=== PATIENT | female | born 1980 | race Caucasian/White ===

== ENCOUNTER → 2017-11-29 | Outpatient (CLI) | payer BC ==
[2017-11-29 16:49] LABS: T4, Free (Free Thyroxine) 0.84 ng/dL (0.78-2.19)
--- NOTE | 2017-12-01 12:32 | US ---
EXAMINATION TYPE: US thyroid st tissue head/neck DATE OF EXAM: 11/29/2017 COMPARISON: NONE CLINICAL HISTORY: E04.1 Thyroid Nodule. Neck swelling GLAND SIZE: Right Lobe: 4.3 x 1.3 x 1.5 cm Overall Parenchyma: homogenous Left Lobe: 3.6 x 0.9 x 1.5 cm Overall Parenchyma: homogeneous Isthmus Thickness: 0.3 cm NODULES RIGHT: # of nodules measured on right: 0 LEFT: # of nodules measured on left: 0 ISTHMUS: # of nodules measured in the isthmus: 0 Bilateral neck scanned, multiple bilateral hypoechoic vascular structures with largest on right = 2.5 x 0.7 x 1.6cm and largest on left = 1.8 x 0.7 x 1.7cm, probable lymph nodes. IMPRESSION: 1. Multiple bilateral nonenlarged lymph nodes surrounding the thyroid gland, likely reactive. 2. No nodularity or heterogeneity within the thyroid gland.
== END | disposition home or self-care (01) ==
LOC: RADUSWWP 15:36
PROVIDERS: ATTEND Otolaryngology
DX: E04.1 Nontoxic single thyroid nodule (principal); E06.9 Thyroiditis, unspecified
CPT/HCPCS: 36415; 76536; 84439; 84443; 84481; 86376

== ENCOUNTER → 2018-05-09 | Outpatient (CLI) | payer BC ==
--- NOTE | 2018-05-09 14:44 | XR ---
EXAMINATION TYPE: XR chest 2V DATE OF EXAM: 05/09/2018 COMPARISON: None INDICATION: History of autoimmune disorders, recurrent episcleritis TECHNIQUE: Frontal and lateral views of the chest are obtained. FINDINGS: The heart size is normal. The pulmonary vasculature is normal. The lungs are clear. No pleural fluid is evident. IMPRESSION: 1. No acute pulmonary process.
--- NOTE | 2018-05-09 14:45 | XR ---
EXAMINATION TYPE: XR sacroiliac joint comp BILAT DATE OF EXAM: 05/09/2018 COMPARISON: None HISTORY: Autoimmune disorder TECHNIQUE: Sacroiliac joints are examined in 3 views FINDINGS: Vacuum joint space phenomenon is present at sacroiliac joints. Some slight increased sclero sis is through the bilateral sacroiliac joints. No acute fractures are evident. IMPRESSION: 1. Degenerative changes of the sacroiliac joints.
[2018-05-09 16:22] LABS: Rheumatoid Factor 6 IU/mL (0-15)
[2018-05-10 06:16] LABS: Angiotensin-1 Converting Enz. 51 U/L (8-52)
[2018-05-10 09:48] LABS: HLA B27 NEGATIVE
== END | disposition home or self-care (01) ==
LOC: LABWHC1 10:37
PROVIDERS: ATTEND Ophthalmology
DX: H15.109 Unspecified episcleritis, unspecified eye (principal); M53.3 Sacrococcygeal disorders, not elsewhere classified; H20.9 Unspecified iridocyclitis
CPT/HCPCS: 36415; 71046; 72202; 82164; 86038; 86431; 86618; 86780; 86812

== ENCOUNTER → 2023-02-06 | Outpatient (CLI) | payer BC ==
--- NOTE | 2023-02-07 07:36 | MM ---
Reason for Exam: Screening (asymptomatic). Last mammogram was performed 8 year(s) and 7 month(s) ago. Patient History: Menarche at age 14. First Full-Term at age 29. Patient has history of breast feeding. Last menstrual period: 01/22/2023 Risk Values: Jasmine 5 year model risk: 0.6%. NCI Lifetime model risk: 11.1%. Prior Study Comparison: 07/26/2014 Bilateral Diagnostic Mammogram, [facility]. 01/25/2015 Right Diagnostic Mammogram, [facility]. Tissue Density: There are scattered fibroglandular densities. Findings: Analyzed By CAD. There is new circumscribed 6 mm round mass in the anterior to middle depth upper inner aspect left breast that warrants further workup. Overall Assessment: Incomplete: need additional imaging evaluation, BI-RAD 0 Management: Diagnostic Breast Ultrasound of the left breast. Targeted ultrasound left breast 9-12 o'clock zone AB. Patient should continue monthly self-breast exams. A clinical breast exam by your physician is recommended on an annual basis. This exam should not preclude additional follow-up of suspicious palpable abnormalities. Note on Jasmine scores and lifetime risk: 1. A Jasmine score greater than 3% is considered moderate risk. If this is the case, consider specialist referral to assess eligibility for a risk reducing agent. 2. If overall lifetime risk for the development of breast cancer is 20% or higher, the patient may qualify for future screening with alternating mammogram and breast MRI. Electronically signed and approved by: Jose Daigle M.D.
== END | disposition home or self-care (01) ==
LOC: RADMAMWWP 14:40
PROVIDERS: ATTEND Obstetrics & Gynecology
DX: Z12.31 Encounter for screening mammogram for malignant neoplasm of breast (principal)
CPT/HCPCS: 77063; 77067

== ENCOUNTER → 2023-02-15 | Outpatient (CLI) | payer BC ==
--- NOTE | 2023-02-15 08:08 | USB ---
Reason for Exam: Additional evaluation requested from abnormal screening. Patient History: Menarche at age 14. First Full-Term at age 29. Patient has history of breast feeding. Risk Values: Jasmine 5 year model risk: 0.6%. NCI Lifetime model risk: 11.1%. Technique: Method: Targeted. Prior Study Comparison: 07/26/2014 Bilateral Diagnostic Mammogram, [facility]. 01/25/2015 Right Diagnostic Mammogram, [facility]. 02/06/2023 Bilateral MG 3D screening mammo w/cad, [facility]. Findings: The upper inner quadrant of the left breast, the axilla of the left breast and the retroareolar of the left breast were scanned. Targeted ultrasound left breast from 9-12 o'clock with additional evaluation the nipple and axilla was performed. There is a hypoechoic mass within the left breast at 10:00 centimeters there is a nipple measuring 0.5 x 0.4 x 0.5 cm well-circumscribed border. This is somewhat oval in appearance without internal color flow. There is posterior acoustic shadowing identified. This appears parallel in orientation. No suspicious left axillary adenopathy identified. Overall Assessment: Suspicious, BI-RAD 4 Management: Ultrasound Core Biopsy of the left breast. A clinical breast exam by your physician is recommended on an annual basis and results should be correlated with mammographic findings. This exam should not preclude additional follow-up of suspicious palpable abnormalities. Results were given to the patient verbally at the time of exam. Electronically signed and approved by: Juanjo Pat D.O.
== END | disposition home or self-care (01) ==
LOC: RADUSWWP 07:38
PROVIDERS: ATTEND Obstetrics & Gynecology
DX: R92.8 Other abnormal and inconclusive findings on diagnostic imaging of breast (principal)

== ENCOUNTER → 2023-02-27 | Day surgery (SDC) | payer BC ==
--- NOTE | 2023-02-27 10:59 | MM ---
Reason for Exam: Post Procedure Mammogram. Last screening mammogram was performed less than 1 month ago. Patient History: Menarche at age 14. First Full-Term at age 29. Patient has history of breast feeding. Risk Values: Jasmine 5 year model risk: 0.6%. NCI Lifetime model risk: 11.1%. Tissue Density: Left: There are scattered fibroglandular densities. Overall Assessment: Post procedure mammogram for marker placement Management: Post Mammogram for Hussein Placement of the left breast. Electronically signed and approved by: Gonzalo Hill DO
--- NOTE | 2023-03-11 09:46 | USB ---
Risk Values: Jasmine 5 year model risk: 0.6%. NCI Lifetime model risk: 11.1%. Prior Study Comparison: 07/26/2014 Bilateral Diagnostic Mammogram, [facility]. 01/25/2015 Right Diagnostic Mammogram, [facility]. 02/06/2023 Bilateral MG 3D screening mammo w/cad, [facility]. Pathology Description: Location: 10 o'clock. Marker Left Behind. Needle Type: Mammotome Cores: 5 Skin Nicks: 1 The procedure of ultrasound guided core biopsy was explained to the patient. Benefits, alternatives, and risks were discussed. An informed consent was then obtained. The patient was placed in supine positioning for imaging and for the procedure. The overlying skin was prepped and draped in usual sterile fashion. Lidocaine buffered with bicarbonate was used as anesthetic into the skin and subcutaneous tissue up to area of concern in the left breast 10:00 7 cm from nipple. A karoline was made with surgical scalpel. Under ultrasound guidance, a 12-gauge vacuum assisted biopsy gun device was used to obtain 5 core samples. Following this, a biopsy clip was left in lesion. The patient tolerated the procedure well without any immediate complication. The patient was kept in the radiology department for short stay after the procedure and then discharged home in stable condition. Postprocedure mammogram: The patient was transferred to mammography for physician ordered post procedure mammogram for clip placement verification. Impression: Successful, uncomplicated ultrasound guided core biopsy of area of concern in the left breast, full pathology results to follow. Pathology Results: Result: Benign, Fibroadenoma. LEFT BREAST, TEN O'CLOCK, ULTRASOUND GUIDED NEEDLE CORE BIOPSY: Fibroadenoma. Overall Assessment: Benign Management: Diagnostic Mammogram of the left breast in 6 months. Electronically signed and approved by: Gonzalo Hill DO
== END ==
LOC: RADUSWWP 07:43
PROVIDERS: ATTEND Surgery
DX: D24.2 Benign neoplasm of left breast (principal)
CPT/HCPCS: 88305; 77065; 19083; A4648

== ENCOUNTER → 2023-03-07 | Outpatient (CLI) | payer BC ==
[2023-03-07 10:51] VITALS: BP 131/84; PULSE 94; RESP 18; TEMP 98.4
--- NOTE | 2023-03-07 11:05 | P.GSHP ---
History of Present Illness H&P Date: 03/07/23 Chief Complaint: fibroadenoma left breast Susi is a 42 year old white female seen in consultation for Dr. Verdugo regarding a left breast fibroadenoma. plan a baseline bilateral mammogram on 5322. This revealed a circumscribed 6 mm bowel mass the anterior middle depth inner aspect left breast for which further workup was recommended. She underwent on an ultrasound of the left breast which revealed at that site a 0.5 x 0.5 cm circumscribed lesion. Ultrasound-guided core biopsy was recommended. She underwent an ultrasound-guided core biopsy and which revealed a fibroadenoma. The patient does not feel anything of concern in either breast. She has not had any surgery on either breast. She is not complaining of any nipple discharge or skin changes. She tolerated the ultrasound core biopsy without difficulty. Caffiene: coke daily 3-4 nicotine: none chocolate: occasional BCP: in her late teens hormones: none Family History: 2 sister pre-cancer cervical cells Hormonal History: menarche: 14 , breast fed: yes, age at first : 29 periods regular: LMP February 18 surgical history: Negative Medical history: HTN SociaL History: nicotine: none alcohol: occasional drugs: none - Constitutional Constitutional: Denies chills, Denies fever - EENT Eyes: denies blurred vision, denies pain Ears: deny: decreased hearing, tinnitus Ears, nose, mouth and throat: Denies headache, Denies sore throat - Breasts Breasts: bilateral: as per HPI - Cardiovascular Cardiovascular: Denies chest pain, Denies shortness of breath - Respiratory Respiratory: Denies cough, Denies 7 - Gastrointestinal Gastrointestinal: Denies abdominal pain, Denies diarrhea, Denies nausea, Denies vomiting - Genitourinary (Female) Genitourinary: Denies dysuria, Denies hematuria - Menstruation Menstruation: Reports as per HPI - Musculoskeletal Musculoskeletal: Denies myalgias - Integumentary Comment: psoriasis Integumentary: Denies pruritus, Denies rash - Neurological Neurological: Denies numbness, Denies weakness - Psychiatric Psychiatric: Denies anxiety, Denies depression - Endocrine Endocrine: Denies fatigue, Denies weight change - Hematologic/Lymphatic Comment: none - Allergic/Immunologic Allergic/Immunologic: Reports as per HPI Past Medical History History of Any Multi-Drug Resistant Organisms: None Reported Smoking Status: Never smoker Medications and Allergies Home Medications Medication Instructions Recorded Confirmed Type Losartan/Hydrochlorothiazide 1 tablet PO DAILY 02/21/23 03/07/23 History [Losartan-Hctz 100-12.5 mg Tab] Allergies Allergy/AdvReac Type Severity Reaction Status Date / Time No Known Allergies Allergy Verified 03/07/23 10:48 Surgical - Exam Vital Signs Temp Pulse Resp BP Pulse Ox 98.4 F 94 18 131/84 100 03/07/23 10:48 03/07/23 10:48 03/07/23 10:48 03/07/23 10:48 03/07/23 10:48 - General no distress - Eyes normal ocular movement - ENT no hearing loss - Neck trachea midline - Respiratory normal respiratory effort - Cardiovascular Rhythm: regular Heart Sounds: normal: S1, S2 - Abdomen Abdomen: soft, non tender, no guarding, no rigid, no rebound - Integumentary normal turgor - Neurologic no disoriented, no combative - Musculoskeletal normal gait, normal posture - Psychiatric oriented to time, oriented to person, oriented to place, speech is normal, memory intact Breat Exam: BRA: 38DD Inspection: bilateral grade 2 ptosis Palpation: Right breast: Multiple positional exam fibrocystic changes no dominant masses or nodules of concern Left breast biopsy site mild ecchymosis no dominant masses or nodules of concern were multiple positional exam Left axilla: No adenopathy of concern Ultrasound personally reviewed Results ultrasound personally reviewed Assessment and Plan Assessment: impression: Ultrasound proven fibroadenoma left breast Plan: Repeat left breast ultrasound in 6 months to assure that this is stable Follow up sooner any questions or concerns CC: Dr. Verdugo
== END ==
LOC: WWCWWP 10:15
PROVIDERS: ATTEND Surgery
DX: D24.2 Benign neoplasm of left breast (principal); I10 Essential (primary) hypertension; Z80.0 Family history of malignant neoplasm of digestive organs

== ENCOUNTER → 2023-09-02 | Outpatient (CLI) | payer BC ==
[2023-09-02 16:09] LABS: Basophils # (A) 0.06 X 10*3/uL (0.00-0.10); Basophils % (A) 0.8 %; Eosinophils # (A) 0.19 X 10*3/uL (0.04-0.35); Eosinophils % (A) 2.5 %; HCT 42.4 % (37.2-46.3); Lymphocytes # (A) 2.54 X 10*3/uL (0.90-5.00); Lymphocytes % (A) 32.8 %; MCH 29.2 pg (27.0-32.0); MCV 88.5 FL (80.0-97.0); Mean Platelet Volume 11.3 FL (9.5-12.2); Monocytes # (A) 0.61 X 10*3/uL (0.20-1.00); Monocytes % (A) 7.9 %; NRBC Per 100 WBC 0 X 10*3/uL (0.00-0.01); Neutrophils % (A) 55.5 %; Platelet Count 323 X 10*3/uL (140-440); RBC 4.79 X 10*6/uL (4.10-5.20); RDW 12.4 % (11.5-14.5); WBC 7.74 X 10*3/uL (4.50-10.00)
[2023-09-02 16:26] LABS: Erythrocyte Sedimentation Rate 3 mm/Hr (0-20)
[2023-09-02 17:48] LABS: ALT 27 U/L (8-44); AST 20 U/L (13-35); Albumin 4.6 g/dL (3.8-4.9); Albumin/Globulin Ratio 1.84 Ratio (1.60-3.17); Alkaline Phosphatase 74 U/L (41-126); BUN/Creat Ratio 8.75 Ratio (12.00-20.00); Calcium 9.5 mg/dL (8.7-10.3); Carbon Dioxide 23.8 mmol/L (21.6-31.8); Chloride 105 mmol/L (96-109); Chol/HDL Ratio 3.64 Ratio; Globulin 2.5 g/dL (1.6-3.3); Glucose 94 mg/dL (70-110); LDL Cholesterol,Calculated 112.8 mg/dL (0.0-131.0); Potassium 3.8 mmol/L (3.5-5.5); Rheumatoid Factor, Qnt <15 IU/mL (0-15); Sodium 141 mmol/L (135-145); T4, Free (Free Thyroxine) 1.07 ng/dL (0.80-1.80); Total Bilirubin 0.4 mg/dL (0.3-1.2); Total Protein 7.1 g/dL (6.2-8.2)
== END | disposition home or self-care (01) ==
LOC: LABWHC1 07:37
PROVIDERS: ATTEND Internal Medicine Critical Care Medicine
DX: Z00.00 Encounter for general adult medical examination without abnormal findings (principal); I10 Essential (primary) hypertension; L40.9 Psoriasis, unspecified; L40.50 Arthropathic psoriasis, unspecified
CPT/HCPCS: 36415; 80053; 80061; 82306; 83036; 84439; 84443; 85025; 85652; 86038; 86431

== ENCOUNTER → 2023-09-02 | Outpatient (CLI) | payer BC ==
--- NOTE | 2023-09-02 09:10 | MM ---
Reason for Exam: Follow-up at short interval from prior study. Last screening mammogram was performed 6 month(s) ago. Patient History: Menarche at age 14. First Full-Term at age 29. Patient has history of breast feeding. 02/27/2023, Benign US biopsy breast VAD LT on the left side. Last menstrual period: 08/20/2023 Risk Values: Jasmine 5 year model risk: 1.1%. NCI Lifetime model risk: 13.4%. Prior Study Comparison: 01/25/2015 Right Diagnostic Mammogram, [facility]. 02/06/2023 Bilateral MG 3D screening mammo w/cad, [facility]. 02/27/2023 Left MG diagnostic mammo LT wo CAD., [facility]. Tissue Density: Left: There are scattered fibroglandular densities. Findings: Analyzed By CAD. Left breast biopsy clip. No new suspicious masses, calcifications or distortions. Overall Assessment: Benign, BI-RAD 2 Management: Screening Mammogram of both breasts in 1 year. Results were given to the patient verbally at the time of exam. Patient should continue monthly self-breast exams. A clinical breast exam by your physician is recommended on an annual basis. This exam should not preclude additional follow-up of suspicious palpable abnormalities. Note on Jasmine scores and lifetime risk: 1. A Ajsmine score greater than 3% is considered moderate risk. If this is the case, consider specialist referral to assess eligibility for a risk reducing agent. 2. If overall lifetime risk for the development of breast cancer is 20% or higher, the patient may qualify for future screening with alternating mammogram and breast MRI. Electronically signed and approved by: Gonzalo Hill DO
== END | disposition home or self-care (01) ==
LOC: LABWHC1 08:46
PROVIDERS: ATTEND Surgery
DX: R92.8 Other abnormal and inconclusive findings on diagnostic imaging of breast (principal)
CPT/HCPCS: 77061; 77065

== ENCOUNTER → 2023-09-18 | Outpatient (CLI) | payer BC ==
--- NOTE | 2023-09-18 13:55 | USB ---
Reason for Exam: Hx of benign breast biopsy. Patient History: Menarche at age 14. First Full-Term at age 29. Patient has history of breast feeding. 02/27/2023, Benign US biopsy breast VAD LT on the left side. Risk Values: Jasmine 5 year model risk: 1.1%. NCI Lifetime model risk: 13.4%. Technique: Method: Targeted. Prior Study Comparison: 02/06/2023 Bilateral MG 3D screening mammo w/cad, [facility]. 02/15/2023 Left US breast workup limited LT, [facility]. 02/27/2023 Left MG diagnostic mammo LT wo CAD., [facility]. 09/02/2023 Left MG 3D diag mammo w/cad LT, [facility]. Findings: The upper inner quadrant of the left breast, the axilla of the left breast and the retroareolar of the left breast were scanned. Electronically signed and approved by: Leonel Tamayo D.O. Radiologis
== END | disposition home or self-care (01) ==
LOC: RADUSWWP 11:01
PROVIDERS: ATTEND Surgery
DX: N63.20 Unspecified lump in the left breast, unspecified quadrant (principal)

== ENCOUNTER → 2023-09-18 | Outpatient (CLI) | payer BC ==
--- NOTE | 2023-09-18 11:00 | P.PN ---
Subjective Progress Note Date: 09/18/23 fibroadenoma left breast Susi is a 42 year old white female seen in consultation for Dr. Verdugo regarding a left breast fibroadenoma. A baseline bilateral mammogram was done on 532 . This revealed a circumscribed 6 mm mass in an anterior middle depth inner aspect left breast for which further workup was [place]. [place] [address] an ultrasound of the left breast which revealed at that site a 0.5 x 0.5 cm circumscribed lesion. Ultrasound-guided core biopsy was recommended. She underwent an ultrasound-guided core biopsy and which revealed a fibroadenoma. The patient does not feel anything of concern in either breast. She has not had any surgery on either breast. She is not complaining of any nipple discharge or skin changes. She tolerated the ultrasound core biopsy without difficulty. The ultrasound core biopsy revealed a fibroadenoma on 02-27-23. Repeat left breast mammogram was done on 1119 72 which revealed scattered fibroglandular densities. This was BIRADS 2. Patient does not note any new lumps masses or nodules of concern. Caffeine: coke daily 3-4 nicotine: none chocolate: occasional BCP: in her late teens hormones: none Family History: 2 sister pre-cancer cervical cells Hormonal History: menarche: 14 , breast fed: yes, age at first : 29 periods regular: LMP February 18 surgical history: Negative Medical history: HTN SociaL History: nicotine: none alcohol: occasional drugs: none - Constitutional Constitutional: Denies chills, Denies fever - EENT Eyes: denies blurred vision, denies pain Ears: deny: decreased hearing, tinnitus Ears, nose, mouth and throat: Denies headache, Denies sore throat - Breasts Breasts: bilateral: as per HPI - Cardiovascular Cardiovascular: Denies chest pain, Denies shortness of breath - Respiratory Respiratory: Denies cough - Gastrointestinal Gastrointestinal: Denies abdominal pain, Denies diarrhea, Denies nausea, Denies vomiting - Genitourinary (Female) Genitourinary: Denies dysuria, Denies hematuria - Menstruation Menstruation: Reports as per HPI - Musculoskeletal Musculoskeletal: Denies myalgias - Integumentary Comment: psoriasis Integumentary: Denies pruritus, Denies rash - Neurological Neurological: Denies numbness, Denies weakness - Psychiatric Psychiatric: Denies anxiety, Denies depression - Endocrine Endocrine: Denies fatigue, Denies weight change - Hematologic/Lymphatic Comment: none - Allergic/Immunologic Allergic/Immunologic: Reports as per HPI Past Medical History History of Any Multi-Drug Resistant Organisms: None Reported Smoking Status: Never smoker Medications and Allergies Home Medications Medication Instructions Recorded Confirmed Type Losartan/Hydrochlorothiazide 1 tablet PO DAILY 02/21/23 03/07/23 History [Losartan-Hctz 100-12.5 mg Tab] Allergies Allergy/AdvReac Type Severity Reaction Status Date / Time No Known Allergies Allergy Verified 03/07/23 10:48 Objective - Constitutional General appearance: Present: cooperative - EENT Eyes: Present: EOMI ENT: Present: hearing grossly normal - Neck Neck: Present: normal ROM - Respiratory Respiratory: bilateral: CTA - Cardiovascular Heart sounds: normal: S1, S2 - Integumentary Integumentary: Present: normal turgor - Musculoskeletal Musculoskeletal: Present: gait normal - Psychiatric Psychiatric: Present: A&O x's 3, appropriate affect, intact judgment & insight - Additional findings Additional findings: Breast Exam: BRA: 38DD Inspection: bilateral grade 2 ptosis Palpation: Right breast: Multi-positional exam fibrocystic changes no dominant masses or nodules of concern Left breast: Multi-positional exam fibrocystic changes no dominant masses or nodules of concern Left axilla: No adenopathy of concern Assessment and Plan Assessment: impression: Ultrasound proven fibroadenoma left breast/reinforced inability Plan: Repeat left breast ultrasound to assure stability of biopsy proven fibroadenoma Follow up after ultrasound bilateral mammogram in February 2024 with examination CC: Dr. Verdugo
[2023-09-18 11:05] VITALS: BP 130/79; PULSE 72; RESP 16; TEMP 97.6
== END ==
LOC: WWCWWP 10:39
PROVIDERS: ATTEND Surgery
DX: D24.2 Benign neoplasm of left breast (principal); I10 Essential (primary) hypertension; Z86.018 Personal history of other benign neoplasm

== ENCOUNTER → 2024-02-11 | Outpatient (CLI) | payer BC ==
--- NOTE | 2024-02-11 10:11 | MM ---
Reason for Exam: Hx of benign breast biopsy. Last screening mammogram was performed 12 month(s) ago. Patient History: Menarche at age 14. First Full-Term at age 29. Patient has history of breast feeding. 02/27/2023, Benign US biopsy breast VAD LT on the left side. Last menstrual period: 01/14/2024 Risk Values: Jasmine 5 year model risk: 1.1%. NCI Lifetime model risk: 13.4%. Prior Study Comparison: 07/26/2014 Bilateral Diagnostic Mammogram, [facility]. 02/06/2023 Bilateral MG 3D screening mammo w/cad, [facility]. 02/27/2023 Left MG diagnostic mammo LT wo CAD., [facility]. 09/02/2023 Left MG 3D diag mammo w/cad LT, [facility]. Tissue Density: There are scattered areas of fibroglandular density. Findings: Analyzed By CAD. Microclip medial left breast from recent biopsy of fibroadenoma. The associated nodularity has diminished in size. Unchanged intramammary lymph node superior posterior left breast. No significant change from prior exams. Overall Assessment: Incomplete: need additional imaging evaluation, BI-RAD 0 Management: Diagnostic Breast Ultrasound of the left breast. As ordered. Electronically signed and approved by: Junior Godwin M.D. Radiologist
--- NOTE | 2024-02-11 10:38 | USB ---
Reason for Exam: Follow-up at short interval from prior study. Patient History: Menarche at age 14. First Full-Term at age 29. Patient has history of breast feeding. 02/27/2023, Benign US biopsy breast VAD LT on the left side. Risk Values: Jasmine 5 year model risk: 1.1%. NCI Lifetime model risk: 13.4%. Technique: Method: Targeted. Prior Study Comparison: 02/06/2023 Bilateral MG 3D screening mammo w/cad, [facility]. 02/27/2023 Left MG diagnostic mammo LT wo CAD., [facility]. 09/02/2023 Left MG 3D diag mammo w/cad LT, [facility]. Findings: The medial section of the breast of the left breast, the axilla of the left breast and the retroareolar of the left breast were scanned. Targeted ultrasound 10:00 right breast, 7 cm from the nipple redemonstrates a bilobed, circumscribed, hypoechoic area measuring 6 x 3 x 2 mm, unchanged since after the patient's biopsy last year and in keeping with benign fibroadenoma. No other solid or cystic lesion or axilla lymphadenopathy. Overall Assessment: Benign, BI-RAD 2 Management: Screening Mammogram of both breasts in 1 year. A clinical breast exam by your physician is recommended on an annual basis and results should be correlated with mammographic findings. This exam should not preclude additional follow-up of suspicious palpable abnormalities. Results were given to the patient verbally at the time of exam. Electronically signed and approved by: Junior Godwin M.D. Radiologist
--- NOTE | 2024-02-13 15:36 | P.PN ---
Subjective Progress Note Date: 02/13/24 Subjective Progress Note Date: 09/18/23 fibroadenoma left breast Susi is a 42 year old white female seen in consultation for Dr. Verdugo regarding a left breast fibroadenoma. A baseline bilateral mammogram was done on 532 . This revealed a circumscribed 6 mm mass in an anterior middle depth inner aspect left breast for which further workup was [place]. [place] [address] an ultrasound of the left breast which revealed at that site a 0.5 x 0.5 cm circumscribed lesion. Ultrasound-guided core biopsy was recommended. She underwent an ultrasound-guided core biopsy and which revealed a fibroadenoma. The patient does not feel anything of concern in either breast. She has not had any surgery on either breast. She is not complaining of any nipple discharge or skin changes. She tolerated the ultrasound core biopsy without difficulty. The ultrasound core biopsy revealed a fibroadenoma on 02-27-23. Repeat left breast mammogram was done on 112 72 which revealed scattered fibroglandular densities. This was BIRADS 2. Patient does not note any new lumps masses or nodules of concern. 02-13-24 The patient had a bilateral mammogram on 02-11-24 and a left breast ultrasound. This was BIRAD 2. She is not complaining of any new lumps, masses, or nodules of concern in either breast. Caffeine: coke daily 3-4 nicotine: none chocolate: occasional BCP: in her late teens hormones: none Family History: 2 sister pre-cancer cervical cells Hormonal History: menarche: 14 , breast fed: yes, age at first : 29 periods regular: LMP February 18 surgical history: Negative Medical history: HTN SociaL History: nicotine: none alcohol: occasional drugs: none - Constitutional Constitutional: Denies chills, Denies fever - EENT Eyes: denies blurred vision, denies pain Ears: deny: decreased hearing, tinnitus Ears, nose, mouth and throat: Denies headache, Denies sore throat - Breasts Breasts: bilateral: as per HPI - Cardiovascular Cardiovascular: Denies chest pain, Denies shortness of breath - Respiratory Respiratory: Denies cough - Gastrointestinal Gastrointestinal: Denies abdominal pain, Denies diarrhea, Denies nausea, Denies vomiting - Genitourinary (Female) Genitourinary: Denies dysuria, Denies hematuria - Menstruation Menstruation: Reports as per HPI - Musculoskeletal Musculoskeletal: Denies myalgias - Integumentary Comment: psoriasis Integumentary: Denies pruritus, Denies rash - Neurological Neurological: Denies numbness, Denies weakness - Psychiatric Psychiatric: Denies anxiety, Denies depression - Endocrine Endocrine: Denies fatigue, Denies weight change - Hematologic/Lymphatic Comment: none - Allergic/Immunologic Allergic/Immunologic: Reports as per HPI Past Medical History History of Any Multi-Drug Resistant Organisms: None Reported Smoking Status: Never smoker Medications and Allergies Home Medications Medication Instructions Recorded Confirmed Type Losartan/Hydrochlorothiazide 1 tablet PO DAILY 02/21/23 03/07/23 History [Losartan-Hctz 100-12.5 mg Tab] Allergies Allergy/AdvReac Type Severity Reaction Status Date / Time No Known Allergies Allergy Verified 03/07/23 10:48 Objective - Constitutional General appearance: Present: cooperative - EENT Eyes: Present: EOMI ENT: Present: hearing grossly normal - Neck Neck: Present: normal ROM - Respiratory Respiratory: bilateral: CTA - Cardiovascular Heart sounds: normal: S1, S2 - Integumentary Integumentary: Present: normal turgor - Musculoskeletal Musculoskeletal: Present: gait normal - Psychiatric Psychiatric: Present: A&O x's 3, appropriate affect, intact judgment & insight - Additional findings Additional findings: Breast Exam: BRA: 38DD Inspection: bilateral grade 2 ptosis Palpation: Right breast: Multi-positional exam fibrocystic changes no dominant masses or nodules of concern Left breast: Multi-positional exam fibrocystic changes no dominant masses or nodules of concern Left axilla: No adenopathy of concern Assessment and Plan Assessment: impression: Ultrasound guided core biopsy proven fibroadenoma left breast Plan: bilateral mammogram and left breast ultrasound in 1 year to be ordered by Dr. Bravo Patient will follow with Dr. Verdugo and will follow here if any concerns CC: Dr. Verdugo
== END | disposition home or self-care (01) ==
LOC: RADMAMWWP 09:36
PROVIDERS: ATTEND Surgery
DX: R92.8 Other abnormal and inconclusive findings on diagnostic imaging of breast (principal); R92.323 Mammographic fibroglandular density, bilateral breasts
CPT/HCPCS: 77062; 77066

== ENCOUNTER → 2024-02-13 | Outpatient (CLI) | payer BC ==
[2024-02-13 15:55] VITALS: BP 112/73; PULSE 79; RESP 16; TEMP 98.3
== END | disposition home or self-care (01) ==
LOC: WWCWWP 15:04
PROVIDERS: ATTEND Surgery
DX: Z53.9 Procedure and treatment not carried out, unspecified reason (principal)

== ENCOUNTER → 2025-03-30 | Outpatient (CLI) | payer BC ==
--- NOTE | 2025-03-30 13:41 | MM ---
Reason for Exam: Screening (asymptomatic). Last mammogram was performed 1 year(s) and 1 month(s) ago. Patient History: Menarche at age 14. First Full-Term at age 29. Patient has history of breast feeding. 02/27/2023, Benign US biopsy breast VAD LT on the left side. Last menstrual period: 03/29/2025 Risk Values: Jasmine 5 year model risk: 1.2%. NCI Lifetime model risk: 13.2%. Prior Study Comparison: 02/27/2023 Left MG diagnostic mammo LT wo CAD., [facility]. 09/02/2023 Left MG 3D diag mammo w/cad LT, [facility]. 02/11/2024 Bilateral MG 3D diag mammo w/cad [facility], [facility]. Tissue Density: There are scattered areas of fibroglandular density. Findings: Analyzed By CAD. Left breast biopsy clip. Right breast: There is no suspicious group of microcalcifications or new suspicious mass. Left breast: There is no suspicious group of microcalcifications or new suspicious mass. Overall Assessment: Negative, BI-RAD 1 Management: Screening Mammogram of both breasts in [address] [facility] will attempt to contact patient to return for supplemental views and ultrasound if indicated. Patient should continue monthly self-breast exams. A clinical breast exam by your physician is recommended on an annual basis. This exam should not preclude additional follow-up of suspicious palpable abnormalities. Note on Jasmine scores and lifetime risk: 1. A Jasmine score greater than 3% is considered moderate risk. If this is the case, consider specialist referral to assess eligibility for a risk reducing agent. 2. If overall lifetime risk for the development of breast cancer is 20% or higher, the patient may qualify for future screening with alternating mammogram and breast MRI. [facility], , 03/30/2025 1:38 PM. Electronically signed and approved by: Gonzalo Hill DO
== END | disposition home or self-care (01) ==
LOC: RADMAMWWP 11:26
PROVIDERS: ATTEND Obstetrics & Gynecology
DX: Z12.31 Encounter for screening mammogram for malignant neoplasm of breast (principal); R92.323 Mammographic fibroglandular density, bilateral breasts
CPT/HCPCS: 77063; 77067